=== PATIENT | male | born 1965 | race Caucasian/White ===

== ENCOUNTER → 2018-02-06 15:06 | Outpatient (CLI) | payer BC | END | disposition home or self-care (01) | LOC: D.MRI 15:06 | DX: M25.512 Pain in left shoulder (principal) ==

== ENCOUNTER → 2020-03-07 08:20 | Outpatient (CLI) | payer BC | END | disposition home or self-care (01) | LOC: D.HCCECHO 08:20 | PROVIDERS: ATTEND Internal Medicine Cardiovascular Disease | DX: R06.00 Dyspnea, unspecified (principal); R94.31 Abnormal electrocardiogram [ECG] [EKG] ==

== ENCOUNTER 2020-03-24 11:12 | Day surgery (SDC) | payer BC ==
[~2020-03-24] VITALS: Ht 185.4 cm; Wt 106.7 kg
--- NOTE | ~2020-03-24 | HEMODYNAMI ---
PATIENT:ADILIA PETERSON JR MEDICAL RECORD: [id number] : 65 LOCATION:[facility] ADMISSION DATE: 03/24/20 Generatedon:03/24/202014:09 Patient name: ADILIA PETERSON Patient #: [id number] SSN: [id number] : 1965 Date of study: 03/24/2020 Page: Of Hemodynamic Procedure Report Patient Data Patient Demographics Procedure consent was obtained First Name: ADILIA Gender: Male Last Name: NICHOLAS Suffix: [facility] Initial: ALESSANDRO : 1965 Patient #: [id number] Age: 54 year(s) Race: SSN: [id number] Additional ID: [id number] Contact details Address: [place] [address] State: [place] City: [place] Zip code: [address] Past Medical History Performed procedures and imaging results Date Procedure Procedure Results Comments 03/07/2020 Stress testing Positive->Intermediate with SPECT MPI risk Allergies Allergen Reaction Date Comments Reported Other allergy 03/24/2020 SULFA, BACTRIM, SHRIMP Admission Admission Data Admission Date: 03/24/2020 Admission Time: 11:12 Arrival Date: 03/24/2020 Arrival Time: 0:00 Admit Source: Other Insurance Payor: Private health insurance [employer] #: [id number] Height (in.): 73 BSA: 2.31 (m2) Height (cm.): 185.42 BMI: 31.04 (kg/m2) Weight (lbs.): 235.28 Weight (kg.): 106.72 Lab Results Lab Result Date: 03/24/2020 Lab Result Time: 0:00 Biochemistry Name Units Result Min Max BUN mg/dl 18 --(---*)-- 7 18 Creatinine mg/dl 1.3 --(---*)-- 0.6 1.3 eGFR ml/min 61.44666 *-(----)-- 90 120 NONAFRICAN CBC Name Units Result Min Max Hematocrit % 49.6 --(--*-)-- 42 54 Hemoglobin g/dl 16.1 --(--*-)-- 13.5 17.5 Procedure Procedure Types Cath Procedure Diagnostic Procedure [facility] w/Coronaries Procedure Description Procedure Date Procedure Date: 03/24/2020 Procedure Start Time: 13:57 Procedure End Time: 14:07 Procedure Staff Name Function Kal Hugo MD Performing Physician Clara Del Real RT Monitor Chelo Gunderson RT Scrub Seble Ghotra RN Nurse Indication Increased shortness of breath Dyspnea Procedure Data Cath Procedure Fluoroscopy Diagnostic fluoroscopy Total fluoroscopy Time: 2 time: 2 min min Diagnostic fluoroscopy Total fluoroscopy dose: 611 dose: 611 mGy mGy Contrast Material Contrast Material Type Amount (ml) Isovue 370 54 Entry Location Entry Primary Successful Side Size Upsize Upsize Entry Closure Ryan ccessful Closure Location (Fr) 1 (Fr) 2 (Fr) Remarks Device Remarks Radial Right 6 Fr Mechanical artery Short Compression Estimated blood loss: 5 ml Diagnostic catheters Device Type Used For End Catheter Placement DIAGNOSTIC Benji 110cm Procedure 5Fr catheter ([id number]) Procedure Complications No complications Procedure Medications Medication Administration Route Dosage Oxygen NC 2 l/min Lidocaine 2% added to field 20 0.9% NaCl I.V. 100 ml/hr Heparin Flush Bag added to field 2 bags (1000units/500ml NS) Radial Cocktail added to field 1 syringe (Verapamil 2mg/Nitro 400mcg/Heparin 1500units) Versed I.V. 2 mg Fentanyl 100 mcg Versed I.V. 2 mg Fentanyl 100 mcg Versed I.V. 1 mg Hemodynamics Rest BSA: 2.31 (m2) HGB: 16.1 (g/dl) O2 Consumption: Estimated: 298.49 (ml/min) O2 Co nsumption indexed: Estimated:129.22 (ml/min/m) Heart Rate: 98 (bpm) Pressure Samples Time Site Value (mmHg) Purpose Heart Use Rate(bpm) 14:00 LV 156/-9,7 Snapshot 111 14:01 AO 118/78(88) Pullback 114 14:01 LV 155/-10,11 Pullback 114 Gradients Valve Time Site 1 Site 2 Mean SEP/DFP Peak To Heart Use (mmHg) (sec/min) Peak Rate (mmHg) (bpm) Aortic 14:01 LV AO 15 18 37 114 155/-10,11 118/78(88) Calculations Valve P-P Mean Valve Index Valve Source Name Gradient Area Flow (cm2) Aortic 37 15 37 15 Snapshots Pre Cath Intra NCS Post Cath Vital Signs Time Heart Resp SPO2 etCO2 NIBP (mmHg) Rhythm Pain Sedation Rate (ipm) (%) (mmHg) Status Level (bpm) 13:51:01 100 11 97 36.2 136/84(109) NSR 0 (11) 10(A) , No pain 13:55:22 98 10 91 37 123/85(95) NSR 0 (11) 10(A) , No pain 13:59:32 108 48 94 38.4 139/85(93) NSR 0 (11) 9(A) , No pain 14:03:56 106 20 92 34.6 121/73(105) NSR 0 (11) 9(A) , No pain 14:08:16 102 20 94 36.2 120/74(95) NSR 0 (11) 10(A) , No pain Medications Time Medication Route Dose Verified Delivered Reason Notes Ef fectiveness by by 13:45:43 Oxygen NC 2 l/min Kal Pedro for low 02 Bethel Castellon sats RN 13:46:09 Lidocaine 2% added 20ml Kal Pedro for local to vial Bethel Castellon anesthetic field RN 13:46:20 0.9% NaCl I.V. 100 Kal Seble used for ml/hr Bethel Ghotra sanitation inspector 13:46:31 Heparin Flush added 2 bags Kal Seble used for Bag to Bethel Ghotra procedure (1000units/500ml field RN NS) 13:57:01 Radial Cocktail added 1 Kal Pedro used for (Verapamil to syringe Bethel Castellon procedure 2mg/Nitro field RN 400mcg/Heparin 1500units) 13:57:10 Versed I.V. 2 mg Kal Seble for Bethel Ghotra sedation RN 13:57:16 Fentanyl 100 mcg Kal Seble for Bethel Ghotra sedation RN 14:01:10 Versed I.V. 2 mg Kal Seble for Bethel Ghotra sedation RN 14:01:23 Fentanyl 100 mcg Kal Seble for Bethel Bergor sedation RN 14:05:32 Versed I.V. 1 mg Kal Seble for Hugo MD Brandin sedation plastic card grader cardroom Log Time Note 13::36 Informed consent obtained and on chart 13:23:13 Diagnostic Cath Status : Elective :58 Lab Result : Creatinine 1.3 mg/dl : Lab Result : BUN 18 mg/dl :58 Lab Result : eGFR NONAFRICAN 61.91869 ml/min :58 Lab Result : Hemoglobin 16.1 g/dl : Lab Result : Hematocrit 49.6 % 13:26:01 Arrival Date: 03/24/2020 12:00:00 AM 13:26:02 Admit Source: Other 13::07 Insurance Payor : Private health insurance 13:26:26 Patient Height : 73 inches 13:26:30 Patient Weight : 235.28 lbs 13:28:36 Patient allergic to Other allergySULFA, BACTRIM, SHRIMP 13:28:48 Indication : Increased shortness of breath 13:28:52 Indication : Dyspnea 13:28:59 ACC Patient presents with Stable Angina CCS Anginal Class 2--Slight limitation of ordinary activity. 13:29:03 Procedure Status Elective Heart Cath (OP). 13:29:04 Time tracking: Regular hours (M-F 7:00 - 5:00) 13:29:10 Plan of Care:Hemodynamics will remain stable., Cardiac rhythm will remain stable., Comfort level will be maintained., Respiratory function will remain adequate., Patient/ family verbilizes understanding of procedure., Procedure tolerated without complication., Recovers from procedure without complications.. 13:29:21 H&P Date Dictated: 03/24/2020 New H&P dictated by physician.. 13:29:23 Pre-procedure instructions explained to patient. 13:29:23 Pre-op teaching completed and patient verbalized understanding. 13:29:25 Family in waiting room. 13:29:27 Patient NPO since Midnight. 13:29:34 Lab results completed and on chart. 13:29:49 Stress Test: yes; abnormal ANTERIOR 13:29:51 Alarms reviewed by R. N. 13:29:52 Sharps counted by scrub and verified by R.N. 13:31:58 Chelo Gunderson RT(R) sent for patient. Start room use. 13:37:00 Patient received from Pre/Post Procedure Room to CCL 2 Alert and oriented. Tansferred to table in Supine position. 13:37:01 Warm blankets applied, and meghna hugger turned on for patient comfort. 13:37:02 Correct patient and procedure confirmed by team. 13:37:02 ECG and BP/O2 sat monitors applied to patient. 13:37:05 Full Disclosure recording started 13:37:10 Is the patient allergic to Iodine/contrast media? Yes. 13:37:12 Was the patient premedicated? Yes 13:37:23 Patient diabetic? No. 13:37:25 If diabetic: On Metformin? N/A 13:37:26 ----Pre-sedation anethsthesia assessment.---- 13:37:29 Previous problem with sedation/anesthesia? No ? 13:45:43 Oxygen 2 l/min NC was administered by Pedro Castellon RN; for low 02 sats; Verbal order read back and verified. 13:46:09 Lidocaine 2% 20ml vial added to field was administered by Pedro Castellon RN; for local anesthetic; Verbal order read back and verified. 13:46:20 0.9% NaCl 100 ml/hr I.V. was administered by Seble Ghotra RN; used for procedure; Verbal order read back and verified. 13:46:31 Heparin Flush Bag (1000units/500ml NS) 2 bags added to field was administered by Seble Ghotra RN; used for procedure; Verbal order read back and verified. 13:49:53 Vital chart was started 13:53:46 Snore? Yes 13:53:48 Sleep apnea? Unknown 13:53:49 Deviated septum? No 13:53:50 Opens mouth fully? Yes 13:53:52 Sticks out tongue? Yes 13:53:54 Airway obstruction? No ? 13:53:58 Pre procedure: right dorsailis pedis pulse 2+ Normal; easily identifiable; not easily obliterated 13:54:00 Modified Gavin's test Ulnar < 7 seconds 13:54:02 Patient pain scale 0/10 ?. 13:54:07 IV patent on arrival in left antecubital with 0.9% NaCl at [facility]. 13:54:11 Right Radial & Right Groin area was prepped with chlora-prep and draped in sterile fashion 13:54:15 Baseline sample Acquired. 13:54:17 Rhythm: sinus rhythm 13:54:24 Use device set Radial Dx or PCI 13:54:25 ACIST Syringe (06227) opened to sterile field. 13:54:26 Medline Cath Pack ([id number]) opened to sterile field. 13:54:26 Bag Decanter (2002) opened to sterile field. 13:54:27 ACIST Hand Control (85477) opened to sterile field. 13:54:28 ACIST Manifold (02042) opened to sterile field. 13:54:29 MBrace Wrist Support ([id number]) opened to sterile field. 13:54:29 NEEDLE Cook 21G 4cm Radial (Y26082) opened to sterile field. 13:54:31 EMERALD Guide Wire (502-475) opened to sterile field. 13:54:31 SHEATH 6FR RAIN (7180230) opened to sterile field. 13:54:38 --------ALL STOP TIME OUT------ 13:54:39 Final Timeout: patient, procedure, and site verified with staff and physician. All members of the team are in agreement. 13:54:43 Right Radial & Right Groin site verified by team. 13:54:45 Fire Safety Assessment: A--An alcohol-based skin anteseptic being used preoperatively., C--Open oxygen or nitrous oxide is being used., D--An ESU, laser, or fiber-optic light is being used. 13:54:48 Physical assessment completed. ASA score P 2 - A patient with mild systemic disease as per Kal Hugo MD. 13:54:50 2) 60-89 Mildly reduced kidney function, and other findings (as for stage 1) point to kidney disease. 13:54:53 Maximum allowable contrast dose (3.7 X eGFR X 0.75)169 ml. 13:54:57 Sedation plan: IV Moderate Sedation Medication:Versed, Fentanyl 13:57:00 Procedure started. 13:57:01 Radial Cocktail (Verapamil 2mg/Nitro 400mcg/Heparin 1500units) 1 syringe added to field was administered by Pedro Castellon RN; used for procedure; Verbal order read back and verified. 13:57:03 Local anesthetic to right femoral artery with Lidocaine 2% by Kal Hugo MD.INITIAL ACCESS ONLY 13:57:10 Versed 2 mg I.V. was administered by Seble Ghotra RN; for sedation; Verbal order read back and verified. 13:57:16 Fentanyl 100 mcg was administered by Seble Ghotra RN; for sedation; Verbal order read back and verified. 13:58:38 A 6 Fr Short sheath was inserted into the Right Radial artery 13:59:22 A DIAGNOSTIC Benji 110cm 5Fr catheter ([id number]) was advanced over the wire and used for Procedure. 13:59:45 LV gram done using PRESSLEY 13:59:48 Injector settings: Ml/sec: 5, Volume: 15, 14:00:44 LV hemodynamics recorded. 14:00:55 EF : 60 % 14:01:10 Versed 2 mg I.V. was administered by Seble Ghotra RN; for sedation; Verbal order read back and verified. 14:01:23 Fentanyl 100 mcg was administered by Seble Ghotra RN; for sedation; Verbal order read back and verified. 14:01:41 LCA angiography performed. 14:01:46 Injector settings: Ml/sec: 3, Volume: 6, 14:02:39 RCA angiography performed. 14:02:42 Injector settings: Ml/sec: 3, Volume: 6, 14:03:15 ACCDominant side:Co-Dominant 14:04:17 Catheter removed. 14:04:56 Sheath removed intact; hemostasis achieved with Mechanical Compression to the Right Radial artery. 14:04:57 ZEPHYR REGULAR TR BAND (045025) opened to sterile field. 14:04:58 Procedure ended.(Physican Out) 14:05:06 Fluoroscopy time 02.00 minutes. 14:05:09 Flurop Dose total: 611 14:05:09 Fluoroscopy dose: 611 mGy 14:05:15 Dose Area Product 03255 mGy/cm. 14:05:29 Maximum allowable dose exceeded? No. 14:05:29 Sharps counted by scrub and verified by R.N. 14:05:32 Versed 1 mg I.V. was administered by Seble Ghotra RN; for sedation; Verbal order read back and verified. 14:05:37 Adona band inflated with 10cc of air. 14:05:40 Post Procedure Pulses reassessed and unchanged 14:05:43 Post procedure: right dorsailis pedis pulse 2+ Normal; easily identifiable; not easily obliterated. 14:05:45 Post-procedure physical assessment completed. ASA score P 2 - A patient with mild systemic disease as per Kal Hugo MD. 14:05:48 Post procedure rhythm: unchanged. 14:05:50 Estimated blood loss: 5 ml 14:05:52 Post procedure instruction explained to patient.Patient verbalizes understanding. 14:05:53 Patient needs reinforcement of post procedure teaching. 14:06:17 Procedure Complication : No complications 14:07:28 Contrast amount:Isovue 370 54ml. 14:07:33 Vital chart was stopped 14:07:34 [facility] Findings: mild to moderate CAD (<70%) 14:07:35 Operative report dictated upon procedure completion. 14:07:36 See physician's report for complete and final results. 14:07:38 Report given to Pre/Post Procedure Room. 14:07:40 Patient transfered to Pre/Post Procedure Room with Stretcher. 14:07:42 Procedure ended. 14:07:42 Full Disclosure recording stopped 14:07:58 End room use (Document Last) 14:08:09 End room use (Document Last) 14:08:38 End room use (Document Last) Device Usage Item Name Manufacture Quantity Catalog Hospital Part Current Minima l Lot# / Number Charge Number Stock Stock Serial# Code ACIST Acist 1 80260 540693 [id number] 796140 20 Syringe Medical (32845) Systems Inc Medline Medline 1 [id number] 206239 79202 115625 5 Cath Pack ([id number]) Bag Microtek 1 031317 87359 136953 5 Decanter Medical Inc. () ACIST Hand Acist 1 11542 419658 984290 781345 5 Control Medical (37812) Systems Inc ACIST Acist 1 67093 615682 902675 643321 5 Manifold Medical (91074) Systems Inc MBrace Advanced 1 140-0250-00 408564 31170 934982 5 Wrist Vascular Support Dynamics ([id number]) NEEDLE CHOBOLABS Medical 1 [id number] 558803 157863 976577 5 21G 4cm Radial (M67653) EMERALD Cardinal 1 571-568 020494 519507 766460 5 Guide Wire [facility] (362-150) SHEATH 6FR Cardinal 1 8117239 251659 2729895 136314 5 [facility] Health (9911849) DIAGNOSTIC Terumo 1 40-0705 747671 456024 635097 5 Benji 110cm 5Fr catheter (619712) ZEPHYR Cardinal 1 261651 267099 0807854 452402 5 REGULAR TR Health BAND (954720) Signature Audit Purcell Stage Time Signature Unsigned Intra-Procedure 03/24/2020 Clara Del Real 2:08:09 PM RT(R) Intra-Procedure 03/24/2020 Seble 2:08:38 PM Brandin RN Intra-Procedure 03/24/2020 Kal Hugo MD 2:09:24 PM Signatures Performing Physician : Signature : Kal Hugo MD Date : Time : Monitor : Clara Del Real Signature : RT Date : Time : Nurse : Seble Signature : Brandin RN Date : Time : [address] [address]
[2020-03-24] MEDS ORDERED: LEXAPRO10 MG PO (11:26)
[2020-03-24] MEDS ORDERED: FENOFIBRATE160 MG PO (11:27)
[2020-03-24] MEDS ORDERED: BAYER CHEWABLE81 MG PO (11:29)
[2020-03-24] MEDS ORDERED: PREVACID30 MG PO (11:29)
[2020-03-24] MEDS ORDERED: PROPAFENONE HC150 MG PO (11:30)
[2020-03-24 11:40] VITALS: BP 146/87; Ht 185.4 cm; Wt 106.7 kg
[2020-03-24] MEDS ORDERED: CANDESARTAN PO (11:48)
[2020-03-24 11:52] LABS: BASOPHILS 0 % (0-2); EOSINOPHILS 0.1 % (0-7); HEMATOCRIT 49.6 % (42.0-54.0); HEMOGLOBIN 16.1 g/dL (13.5-17.5); IMMATURE GRANULOCYTES 0.4 % (0-5); LYMPHOCYTES 7.9 % (15-50); MCH 29.3 pg (26.0-34.0); MCHC 32.5 g/dL (31.0-37.0); MCV 90.3 fL (80.0-100.0); MEAN PLATELET VOLUME 10.3 fL (7.4-10.4); MONOCYTES 2.4 % (2-11); NEUTROPHILS 89.2 % (40-80); PLATELET COUNT 232 10x3/uL (130-400); RBC 5.49 10x6/uL (4.20-6.10); RDW 12.9 % (11.5-14.5)
[2020-03-24 12:06] LABS: ANION GAP 13.3 mmol/L (8-16); CALCIUM 9.2 mg/dL (8.5-10.1); CHOL - HDL RATIO 5.9 ratio (2.3-4.9); CREATININE - SERUM 1.3 mg/dL (0.6-1.3); POTASSIUM - SERUM 4.3 mmol/L (3.5-5.1)
--- NOTE | 2020-03-24 14:14 | NUR ---
PT ARRIVED BY STRETCHER. PLACED ON MONITORS. ASSESSMENT COMPLETED. VSS AT THIS TIME. CALL LIGHT WITHIN REACH. DR. PARIKH ROUNDED AND SPOKE WITH PT. PT'S IS NOT HERE AT THIS TIME. I CALLED HER AND UPDATED HER BY TELEPHONE.
--- NOTE | 2020-03-24 14:30 | NUR ---
RIGHT WRIST Z BAND IN PLACE. NO BLEEDING/HEMATOMA NOTED. CALL LIGHT WITHIN REACH. VSS AT THIS TIME. FAMILY AT BEDSIDE. PT DENIES PAIN/NAUSEA. SET UP WITH SANDWICH TRAY AND DRINK.
--- NOTE | 2020-03-24 15:00 | NUR ---
PT SITTING UP IN BED. VSS. RIGHT WRIST Z BAND IN PLACE. NO BLEEDING/HEMATOMA NOTED. CALL LIGHT WITHIN REACH. FAMILY AT BEDSIDE.
--- NOTE | 2020-03-24 15:30 | NUR ---
2cc OF AIR REMOVED FROM Z BAND. NO BLEEDING/HEMATOMA NOTED. VSS AT THIS TIME. CALL LIGHT WITHIN REACH. PT VOIDED 350cc OF CLEAR YELLOW URINE IN URINAL WITHOUT DIFFICULTY.
--- NOTE | 2020-03-24 15:45 | NUR ---
3cc OF AIR REMOVED FROM Z BAND. NO BLEEDING/HEMATOMA NOTED. CALL LIGHT WITHIN REACH. VSS AT THIS TIME.
--- NOTE | 2020-03-24 15:56 | NUR ---
5cc OF AIR REMOVED FROM Z BAND. NO BLEEDING/HEMATOMA NOTED. VSS. CALL LIGHT WITHIN REACH. NO NEEDS AT THIS TIME.
--- NOTE | 2020-03-24 16:15 | NUR ---
Z BAND REMOVED AND DRESSING APPLIED. NO BLEEDING/HEMATOMA NOTED. PIV D/C'D WITH CATH TIP INTACT. TOLERATED WELL. PT INSTRUCTED TO GET UP AND DRESSED AT THIS TIME. RIGHT WRIST BRACE IN PLACE. PT'S AT BEDSIDE TO ASSIST. CALL LIGHT WITHIN REACH.
--- NOTE | 2020-03-24 16:22 | NUR ---
DISCUSSED DISCHARGE INSTRUCTIONS WITH PT AND PT'S . THEY VOICED UNDERSTANDING.
--- NOTE | 2020-03-24 16:30 | NUR ---
RIGHT WRIST DRESSING C/D/I. NO S/S OF BLEEDING/HEMATOMA NOTED. PT AMBULATED TO VEHICLE. STEADY GAIT NOTED. REFUSED WHEELCHAIR. ALL BELONGINGS AND PAPERWORK IN HAND.
== END 2020-03-24 16:30 | disposition home or self-care (01) ==
LOC: D.CATH 11:12
PROVIDERS: ATTEND Internal Medicine Cardiovascular Disease
DX: I20.9 Angina pectoris, unspecified (principal); R94.39 Abnormal result of other cardiovascular function study; R06.00 Dyspnea, unspecified; I45.6 Pre-excitation syndrome